=== PATIENT | male | born 1980 | race Caucasian/White ===

== ENCOUNTER 2022-02-07 16:47 | Emergency (ER) | payer OTHER ==
[~2022-02-07] VITALS: Ht 182.9 cm; Wt 81.6 kg
--- NOTE | 2022-02-07 17:15 | NUR ---
Pt ambulatory to room 5A. Pt was seen and evaluated by . Specimens for rapid influenza and covid-19 antigen collected and brought to lab.
--- NOTE | 2022-02-07 18:04 | NUR ---
Patient discharged to home in stable condition. Written and verbal after care instructions given. Patient verbalizes understanding of instructions. Stressed follow up or return to ER for worsening s/s.
--- NOTE | 2022-02-07 18:10 | NUR ---
Specimen for Covid-19 PCR collected and brought to lab.
== END 2022-02-07 18:16 | disposition home or self-care (01) ==
LOC: ER 16:47
DX: B34.9 Viral infection, unspecified (principal); Z20.822 Contact with and (suspected) exposure to COVID-19
CPT/HCPCS: 99283; 87426; 87400; U0003; 36415; A4663; C9803